=== PATIENT | female | born 1940 | race Caucasian/White ===

== ENCOUNTER 2017-04-06 06:21 | Inpatient (IN) | payer MEDICARE, MEDICAID ==
[~2017-04-06] VITALS: Ht 165.1 cm; Wt 93.5 kg
[2017-04-06] VITALS (40 sets, daily range): BP systolic 118–169; BP diastolic 23–61; BMI 33.3
--- NOTE | ~2017-04-06 | HP ---
PATIENT: DIVINA MALIK MEDICAL RECORD: [id number] ACCOUNT: [id number] LOCATION:[facility] : 44 ADMISSION DATE: 04/06/17 HISTORY AND PHYSICAL EXAMINATION DIVINA Epstein (76yo, F) ID# [id number]. Date/Time03/14/2017 02:[id number] 1940[facility] Dept.NP_[place] [facility] ClinicProviderEDKARLA HENRIQUEZ MDInsuranceMed Primary: [employer] [place] Insurance # : [id number] Employer Name : RETIRED Med Secondary: [place] Insurance # : [id number] PCP : CHANNING SAGASTUME Employer Name : RETIRED Prescription: Omnigy - This member could not be found in the payer's files. Please verify coverage and all member demographic information. Chief Complaint Coronary artery disease has CTA from [facility] Patient's Care Team Primary Care Provider (): CHANNING SAGASTUME: [address], [place] [address], , Patient's Pharmacies [facility] ([place]): [address] [facility] [address], , Vitals BP:182/9 2 sitting L arm 03/14/2017 02:06 pm 162/90 sitting R arm 03/14/2017 02:07 pmBP Cuff Size:adult 03/14/2017 02:06 pm adult 03/14/2017 02:07 pmHR:68,reg 03/14/2017 02:08 pmHt:5 ft 5 in 03/14/2017 02:08 pmWt:240 lbs 03/14/2017 02:09 pmBMI:39.9 03/14/2017 02:09 pmAllergies Reviewed Allergies NKDAMedications Reviewed Medications Aspir-81 81 mg tablet,delayed release Take 1 tablet(s) every day by oral route.03/14/17 enteredKathy Wilsonatorvastatin 10 mg tablet TK 1 T PO QD02/28/17 filledsurescriptshydroCHLOROthiazide 12.5 mg tablet TK 1 T PO D002/28/17 filledsurescriptsLyrica 50 mg capsule TK 1 CAPSULE PO QHS FOR 30 DAYS02/04/17 filledsurescriptsmeloxicam 15 mg tablet TK 1 T PO QD02/28/17 filledsurescriptsmetFORMIN 500 mg tablet TK 1 T PO BID WITH MEALS02/28/17 filledsurescriptsmetoprolol tartrate 50 mg tablet TK 1 T PO BID02/28/17 filledsurescriptsProblems Reviewed Problems Bilateral carotid artery stenosis - Onset: 03/14/2017 Carotid artery stenosis - Onset: 03/12/2017, Right Family History Reviewed Family History Father- Cerebrovascular accidentMother- AsthmaSocial History Reviewed Social History Cardiology Smoking Status: Never smoker High Cholesterol: Y High blood pressure: Y HISTORY AND PHYSICAL [id number] DIVINA MALIK Diabetes: Y Alcohol intake: None Surgical History Reviewed Surgical History appendectomy STAPLER HAND History (not configured) Past Medical History Reviewed Past Medical History Diabetes: Y Hyperlipidemia: Y Hypertension: Y Stroke: Y Notes: edema, chronic pain, renal insufficiency, leukocytosis, neck and back pain Documents for Discussion N/A Screening None recorded. HPI carotid artery disease ROS Patient reports exercise intolerance but reports no fever, no night sweats, no significant weight gain, and no significant weight loss. She reports no jugular vein distension and no swollen glands; pain and left arm Cervical disc disease. She reports no muscle aches, no muscle weakness, no arthralgias/joint pain, no back pain, and no swelling in the extremities; pain and left arm. She reports no fatigue; thyroid nodule. She reports no dry eyes, no irritation, and no vision change. She rep orts no difficulty hearing and no ear pain. She reports no frequent nosebleeds and no nose/sinus problems. She reports no sore throat, no bleeding gums, no snoring, no dry mouth, no mouth ulcers, no oral abnormalities, and no teeth problems. She reports n o chest pain, no arm pain on exertion, no shortness of breath when walking, no shortness of breath when lying down, no palpitations, and no known heart murmur. She reports no cough, no wheezing, no shortness of breath, and no coughing up blood. She reports no abdominal pain, no vomiting, normal appetite, no diarrhea, not vomiting blood, no nausea, and no constipation. She reports no incontinence, no difficulty urinating, no hematuria, and no increased frequency. She reports no abnormal mole, no jaundice, an d no rashes. She reports no loss of consciousness, no weakness, no numbness, no seizures, no dizziness, and no headaches. She reports no depression, no sleep disturbances, feeling safe in relationship, and no alcohol abuse. She reports no swollen glands an d no bruising. She reports no runny nose, no sinus pressure, no itching, no hives, and no frequent sneezing. ROS as noted in the HPI Physical Exam Patient is a 76-year-old female. Constitutional: General Appearance well nourished and developed and healthy-appearing. Level of Distress NAD. Ambulation ambulating normally. Cardiovascular: Apical Impulse not displaced or no thrill. Heart Auscultation normal s1 and s2; no murmurs, rubs, or gallops; and RRR. Arterial Pulses no abdominal aorta bruits, femoral br uits, or popliteal bruits and 2+ bilateral, carotid 2+ bilateral, femoral 2+ bilateral, popliteal 2+ bilateral, and dorsalis pedis 2+ bilateral. Edema no edema or varicosities. HISTORY AND PHYSICAL [id number] DIVINA MALIK Lungs: Repiratory Effort no dyspnea. Percussion no hyperresonance or dullness or flatness. Auscultation no wheezing, rhonchi, or rales / crackles and breathing sounds normal, good air movement, and CTA except as noted. Abdomen: Bowl Sounds normal. Inspection and Palpation no tenderness, guarding, masses, or rebound tenderness and s oft and non-distended. Liver non-tender and no hepatomegaly. Spleen non-tender and no splenomegaly. Hernia none palpable. Musculoskeletal System: Gait And Stance normal gait and stance. Digits and Nails normal nails and no cyanosis. Joints, Bones, and Muscles limited ROM (left upper extremity). Neurologic: Cranial Nerves grossly intact. Reflexes DTRs 2+ bilaterally throughout. Sensation grossly intact. Lymph Nodes: Lymph Nodes no cervical LAD, supraclavicular LAD, axillary LAD, or inguinal LAD. Eyes: Lids and Conjunctivae no discharge or pallor and non-injected. Pupils PERRLA. Cornea grossly intact. EOM EOMI. Lens clear. Sclera non-icteric. Neck: Neck no masses or enlarged lymph nodes and supple, trachea midline, and carotid bruits (right). Thyroid no enlargement or nodules and non-tender. Skin: Inspection and Palpation no rash, lesions, ulcers, jaundice, or abnormal nevi. Assessment / Plan severe right internal carotid artery stenosis 1. Bilateral carotid artery stenosis I65.23: Occlusion and stenosis of bilateral carotid arteries 2. Carotid artery stenosis - Right I65.29: Occlusion and stenosis of unspecified carotid artery CAROTID STENOSIS: CARE INSTRUCTIONS Discussion Notes I have discussed the patient's disease process with her and her fa yaz in detail as well as the alternative methods of treatment we discussed right carotid endarterectomy including the expected benefits and risks which include bleeding, infection, stroke, also limb, and as well as the imponderables. She understand s all the above and wishes to proceed with planned surgery AUSTIN HENRIQUEZ MD at 1102 CC: [id number] DICTATION DATE: 03/14/17 1400 BABY FORMULA MIXER: HAMMAD 03/20/17 1203 PRE IN [facility] [address] [place] [address]
--- NOTE | ~2017-04-06 | OP ---
PATIENT NAME: DIVINA MALIK MEDICAL RECORD: [id number] :44 [facility] ADMISSION DATE:04/06/17 SURGEON: JOHNNY HENRIQUEZ MD DATE OF OPERATION: 04/06/2017 SURGEON: Johnny Henriquez MD ANESTHESIA: General endotracheal. ANESTHESIOLOGIST: Paramjit Cervantes MD OPERATION PERFORMED: Right carotid endarterectomy with patch angioplasty. PREOPERATIVE DIAGNOSIS: Severe right internal carotid artery stenosis. POSTOPERATIVE DIAGNOSIS: Severe right internal carotid artery stenosis. INDICATION FOR OPERATION: Severe right internal carotid artery stenosis. FINDINGS AT OPERATION: Severe right internal carotid artery stenosis. There were no EEG changes with clamping or unclamping of the carotid artery. The area estimated at approximately 90%. ESTIMATED BLOOD LOSS: Less than 100 cc. DESCRIPTION OF PROCEDURE: After informed consent, adequate preoperative medication evaluation, the patient was brought to the operating room, placed on the table in the supine position. After induction of general endotracheal anesthesia and application of appropriate monitoring devices, the right neck and chest were prepped and draped in a sterile field, utilizing Betadine scrub, alcohol, and Betadine solution. A Betadine-impregnated drape was also used. An oblique incision was made in the skin crease. Dissection carried down to the fascia. Hemostasis maintained with electrocautery. The facial vein was identified and divided. Utilizing sharp dissection, the common carotid, internal and external carotid arteries were dissected free from surrounding structures, protecting the neurological structures. The patient was given a calculated dose of heparin, after 3 minutes, clamps were applied. After 2 minutes, no EEG changes. The arteriotomy was made and extended with Jennings scissors. The artery underwent endarterectomy sharply. Artery underwent extensive debridement and irrigation. Utilizing a CorMatrix vascular patch, a running 7-0 Prolene suture, the arteriotomy was closed with patch angioplasty technique. All maneuvers to remove trapped air were performed. The clamps were removed sequentially. There were no EEG changes. The patient was given a calculated dose of protamine to reverse the heparin. Hemostasis was achieved. A #7 Beto-Mehta drain was left in the depth of wound and brought through the base of the neck. Neck was again irrigated. Instrument count and sponge count were correct times 2. Neck was closed in layers utilizing 3-0 Vicryl on the platysma, 5-0 subcuticular Monocryl on the skin. Sterile dressings were applied. The patient tolerated procedure well and was transferred to the CV ICU in satisfactory condition. TRANSINT:[id number] Voice Confirmation ID: [id number] DOCUMENT ID: [id number] OPERATIVE REPORT [id number] DIVINA MALIK EDWARD MD at 1311 CC: [id number] DICTATION DATE: 04/06/17 1418 REPAIRER RECREATIONAL VEHICLE: 04/06/17 1436 [place] [address]
[2017-04-06 07:51] LABS: MCH 29.3 pg (26.0-34.0); MCHC 32.4 g/dL (31.0-37.0); MCV 90.5 fL (80.0-100.0); MEAN PLATELET VOLUME 11.2 fL (7.4-10.4); RBC 4.09 10x6/uL (4.00-5.40); RDW 12.8 % (11.5-14.5); WBC 10.1 10x3/uL (4.8-10.8)
[2017-04-06 08:05] LABS: ALBUMIN 3.5 g/dL (3.4-5.0); BILIRUBIN - TOTAL 0.37 mg/dL (0.2-1.3); CALCIUM 9.8 mg/dL (8.5-10.1); CREATININE - SERUM 1.2 mg/dL (0.6-1.3); PROTEIN - SERUM 7.4 g/dL (6.4-8.2)
[2017-04-06 08:07] LABS: APTT 29.7 SECONDS (22.8-39.4); INR 1.03 (0.85-1.17); PROTIME 13.1 SECONDS (11.6-15.0)
[2017-04-06] MEDS ORDERED: BAYER CHEWABLE81 MG PO (10:25)
[2017-04-06] MEDS ORDERED: LIPITOR10 MG PO (10:26)
[2017-04-06] MEDS ORDERED: LYRICA50 MG PO (10:26)
[2017-04-06] MEDS ORDERED: HYDROCHLOROTH12.5 M1 PO (10:26)
[2017-04-06] MEDS ORDERED: METOPROLOL TART50 MG PO (10:27)
[2017-04-06] MEDS ORDERED: MOBIC7.5 MG PO (10:27)
[2017-04-06] MEDS ORDERED: GLUCOPHAGE500 MG PO (10:27)
[2017-04-06 10:29] LABS: APPEARANCE SLT CLOUDY (CLEAR); BILIRUBIN NEGATIVE (NEGATIVE); COLOR YELLOW (YELLOW); GLUCOSE NEGATIVE (NEGATIVE); KETONE NEGATIVE (NEGATIVE); NITRITE NEGATIVE (NEGATIVE); PROTEIN NEGATIVE (NEGATIVE); SPECIFIC GRAVITY 1.015 (1.005-1.020); UROBILINOGEN NORMAL (NORMAL)
[2017-04-06 10:32] LABS: BACTERIA MANY /hpf (NONE SEEN); MUCUS <1+ /lpf (NONE SEEN); RED CELLS - URINE 0-5 /hpf (0-5)
[2017-04-07] VITALS (104 sets, daily range): BP systolic 100–152; BP diastolic 37–61
[2017-04-08] VITALS (51 sets, daily range): BP systolic 99–148; BP diastolic 36–82
[2017-04-09] VITALS (22 sets, daily range): BP systolic 107–146; BP diastolic 40–64; Ht 165.1 cm; Wt 93.5 kg
[2017-04-09 05:43] LABS: HEMOGLOBIN 10.7 g/dL (12-16); MCH 28.8 pg (26.0-34.0); MCHC 31.5 g/dL (31.0-37.0); MCV 91.4 fL (80.0-100.0); MEAN PLATELET VOLUME 11.2 fL (7.4-10.4); RBC 3.72 10x6/uL (4.00-5.40); RDW 12.8 % (11.5-14.5); WBC 11.8 10x3/uL (4.8-10.8)
[2017-04-09 06:14] LABS: CALCIUM 8.5 mg/dL (8.5-10.1); CREATININE - SERUM 1.4 mg/dL (0.6-1.3)
[2017-04-09 09:03] LABS: ALBUMIN 2.7 g/dL (3.4-5.0); BILIRUBIN - DIRECT 0.06 mg/dL (0.00-0.30); BILIRUBIN - INDIRECT 0.52 mg/dL (0.00-1.00); BILIRUBIN - TOTAL 0.58 mg/dL (0.2-1.3); PROTEIN - SERUM 6.8 g/dL (6.4-8.2)
[2017-04-09 13:22] LABS: APPEARANCE CLEAR (CLEAR); BILIRUBIN NEGATIVE (NEGATIVE); COLOR STRAW (YELLOW); GLUCOSE NEGATIVE (NEGATIVE); KETONE SMALL mg/dL (NEGATIVE); NITRITE NEGATIVE (NEGATIVE); PROTEIN NEGATIVE (NEGATIVE); UROBILINOGEN NORMAL (NORMAL)
[2017-04-09 13:31] LABS: BACTERIA FEW /hpf (NONE SEEN); EPITHELIAL CELLS OCC /hpf (0-5); RED CELLS - URINE OCC /hpf (0-5); WHITE CELLS - URINE RARE /hpf (0-5)
[2017-04-09 13:32] LABS: AMORPHOUS SEDIMENT >1+ /lpf (NONE SEEN); MUCUS <1+ /lpf (NONE SEEN)
[2017-04-09 13:33] LABS: URIC ACID CRYSTALS 0-5 /hpf (NONE SEEN)
[2017-04-10] VITALS (15 sets, daily range): BP systolic 119–153; BP diastolic 45–79
[2017-04-10] MEDS ORDERED: PLAVIX75 MG PO (14:33)
== END 2017-04-10 16:00 | disposition home or self-care (01) | DRG 37 ==
LOC: D.SDCHOLD 06:21 → D.CVICU 06:21 → D.SDCHOLD 11:15 → D.CVICU 04-10 16:00
PROVIDERS: Internal Medicine Cardiovascular Disease
PROC: 03UK0JZ Supplement Right Internal Carotid Artery with Synthetic Substitute, Open Approach (ICD-10-PCS; 2017-04-06)
PROC: 03CK0ZZ Extirpation of Matter from Right Internal Carotid Artery, Open Approach (ICD-10-PCS; principal; 2017-04-06 11:15)
DX: I65.23 Occlusion and stenosis of bilateral carotid arteries (principal); G93.40 Encephalopathy, unspecified; N39.0 Urinary tract infection, site not specified; N17.9 Acute kidney failure, unspecified; G72.81 Critical illness myopathy; E78.00 Pure hypercholesterolemia, unspecified; E11.9 Type 2 diabetes mellitus without complications; I10 Essential (primary) hypertension; E87.6 Hypokalemia